=== PATIENT | male | born 1950 | race Caucasian/White ===

== ENCOUNTER 2023-10-30 11:34 | Emergency (ER) | payer MEDICARE, SELFPAY ==
[2023-10-30 11:50] VITALS: BP 166/81; PULSE 62; RESP 20; TEMP 36.9; O2SAT 97; BMI 31.2
--- NOTE | 2023-10-30 12:01 | CRLHL7_ITS ---
For Patients: As a result of the 21st Century Cures Act, medical imaging exams and procedure reports are released immediately into your electronic medical record. You may view this report before your referring provider. If you have questions, please contact your health care provider. INDICATION: Right-sided abdominal pain. Evaluate for kidney stone. TECHNIQUE: Multiplanar CT examination of the abdomen and pelvis was performed without the use of intravenous contrast. COMPARISON: None. FINDINGS: Lower chest: No focal consolidation. Normal heart size. No pleural effusions or pneumothorax. Dependent atelectasis. Linear band like opacification of the lungs bilaterally, likely subsegmental atelectasis and/or scarring. Liver: Unremarkable. Gallbladder: Unremarkable. Biliary: Unremarkable. Pancreas: Within normal limits. Spleen: Unremarkable. Adrenal glands: Unremarkable. Renal/ureters/bladder: The right kidney appears edematous with moderate hydroureteronephrosis the level of the proximal ureter where there is a 5 mm obstructing urinary calculus (2:90). There is mild associated right-sided perinephric fat stranding. The left kidney is normal in size without evidence of obstructive uropathy. Limited evaluation for renal masses without the use of intravenous contrast. Bladder appears diffusely thick walled, with several posterior projecting bladder diverticulum on the right, can be seen in the setting of chronic outlet obstruction. Pelvis: Enlarged prostate measuring 4.6 cm. Gastrointestinal: No bowel wall thickening or bowel obstruction. Nonvisualized appendix. No significant colonic diverticulosis. Moderate colonic stool burden. Vasculature: No aortic aneurysm. Moderate atherosclerotic calcifications. Lymph nodes: No pathologic lymphadenopathy by size criteria. Peritoneum: No free fluid or pneumoperitoneum. No drainable fluid collections. Abdominal wall/soft tissues: Unremarkable. Bones: No acute osseous abnormalities. Mild multilevel degenerative changes of the thoracolumbar spine. IMPRESSION: Moderate right-sided hydroureteronephrosis to the level of the proximal ureter where there is a 5 mm obstructing urinary calculus. Please note that all CT scans at this facility use dose modulation, iterative reconstruction, and/or weight-based dosing when appropriate to reduce radiation dose to as low as reasonably achievable. Dictated by Solo Arora MD @ 10/30/2023 1:13:05 PM (Electronically Signed)
--- NOTE | 2023-10-30 12:13 | ED.GENADULT ---
HPI - General Adult General Chief complaint: Back Injury/Pain Stated complaint: Lower R side back/abdominal pain Time Seen by Provider: 10/30/23 11:36 History of Present Illness HPI narrative: Patient is a 73 year white male advised to come to the ER by his clinic, he had abdominal pain. Reports that it started at 4 in the morning with some lobe right-sided back ache. He has had no urinary symptoms no hematuria no frequency, he does have prostatism and takes tamsulosin for this. He has no fevers chills or vomiting. He has noticed pain radiating through to his front side of his abdomen, is right lower quadrant, does not radiate to his groin or testicles. He has had no pain in his groin, no dysuria no hematuria as mention. He has had no history kidney stones. He has been generally quite healthy. Presents emergency department. He reports this time it is a ?ache?. Related Data Home Medications ?Medication ?Instructions ?Recorded ?Confirmed tamsulosin 0.4 mg capsule 0.4 mg PO DAILY 10/30/23 10/30/23 Previous Rx's ?Medication ?Instructions ?Recorded ketorolac 10 mg tablet 10 mg PO Q8H PRN pain 3 days #10 10/30/23 tabs Allergies Allergy/AdvReac Type Severity Reaction Status Date / Time No Known Drug Allergies Allergy Verified 10/30/23 11:17 Review of Systems Status of ROS: Reports: 6 or more systems reviewed and unremarkable except as noted in History and below Exam Narrative: Exam Narrative: Objective: In general patient is in no apparent distress alert orient x3 noncyanotic Vital signs show slightly elevated blood pressure, afebrile HEENT unremarkable pulse regular abdomen some very mild right lower abdominal tenderness lateral to the umbilicus, not really over his appendix. Denies groin pain Negative flank pain Extremities good perfusion Neurologic nonfocal Const: Vital Signs, click to edit/add: Vital Signs - 24 hr 10/30/23 11:50 Temperature 98.5 F Pulse Rate [Pulse Oximeter] 62 Respiratory Rate 20 Blood Pressure [Ri ght Upper Arm] 166/81 H Pulse Oximetry 97 Oxygen Delivery Me thod Room Air Course Vital Signs Vital signs: Initial Vital Signs Temperature 98.5 F 10/30/23 11:50 Temperature Source Temporal Artery Scan 10/30/23 11:50 Pulse Rate 62 10/30/23 11:50 Pulse Rhythm Regular 10/30/23 11:50 Respiratory Rate 20 10/30/23 11:50 Blood Pressure 166/81 H 10/30/23 11:50 Blood Pressure Mean 109 H 10/30/23 11:50 Blood Pressure Position Sitting 10/30/23 11:50 Pulse Oximetry 97 10/30/23 11:50 Oxygen Delivery Method Room Air 10/30/23 11:50 Vital Signs Temperature 98.5 F 10/30/23 11:50 Pulse Rate 62 10/30/23 11:50 Respiratory Rate 20 10/30/23 11:50 Blood Pressure 166/81 H 10/30/23 11:50 Pulse Oximetry 97 10/30/23 11:50 Oxygen Delivery Method Room Air 10/30/23 11:50 Temperature 98.5 F 10/30/23 11:50 Pulse Rate 62 10/30/23 11:50 Respiratory Rate 20 10/30/23 11:50 Blood Pressure 166/81 H 10/30/23 11:50 Pulse Oximetry 97 10/30/23 11:50 Oxygen Delivery Method Room Air 10/30/23 11:50 Medications Administered Medications: Discontinued Medications Generic Name Dose Route Start Last Admin Trade Name Freq PRN Reason Stop Dose Admin Sodium Chloride 1,000 mls @ 6,000 mls/hr 10/30/23 12:00 10/30/23 13:44 0.9 % Sodium Chloride 1000 Ml IV 10/30/23 12:09 Infused .Q10M SAADIA Infusion Ketorolac Tromethamine 15 mg 10/30/23 12:15 10/30/23 12:24 Ketorolac 15 Mg/Ml Inj IVP 10/30/23 12:16 15 mg ONCE ONE Administration Morphine Sulfate 4 mg 10/30/23 13:23 10/30/23 13:28 Morphine 4 Mg/Ml Inj IVP 10/30/23 13:24 4 mg ONCE ONE Administration Medical Decision Making MDM Narrative Medical decision making narrative: [age] white male with onset of right lower abdominal and back pain, rule out kidney stone rule out cholecystitis rule out diverticulitis, rule out appendicitis. Patient will get a CT scan without contrast, IV fluid, IV Toradol, urinalysis lab studies. Disposition pending findings above. Addendum 1:15 p.m. the patient has a 5 mm proximal ureteral calculus in the right ureter with hydronephrosis. His urinalysis does not look infected. His white count is normal. I think he can practice a urine strainer for 48 hours, he may not pass this stone may need urology follow-up but would have him see his regular doctor within the next 2-3 days. Will give some Toradol for home will send him home with a urine strainer. Return if increasing pain or problems or concerns. Patient given additional IV dose of morphine just to help him get home, and then he can use the Toradol again. His pain is resolved but just getting a little inkling of pain returning. Will help with the medication. He may need to see Urology at some point will have him see Primary Care within the next few days. He sees Dr. Ken Parks [facility]. Lab Data Labs: Lab Results 10/30/23 10/30/23 Range/Units 12:15 12:40 WBC 6.97 (4.50-11.00) K/uL RBC 4.73 (4.30-5.90) m/uL Hgb 14.3 (13.5-17.5) gm/dL Hct 42.4 (37.0-53.0) % MCV 90 (80-100) fL MCH 30 (26-34) pg MCHC 34 (32-36) gm/dL RDW Coeff of Elijah 13.6 (11.5-15.5) % Plt Count 189 (140-440) K/uL Neut % (Auto) 71.6 (42.0-72.0) % Lymph % (Auto) 19.4 L (20-44) % Mccormick % (Auto) 7.9 (0.0-11.0) % Eos % (Auto) 0.7 (0.0-7.0) % Baso % (Auto) 0.3 (0.0-3.0) % Neut # (Auto) 4.99 (1.7-7.0) K/uL Lymph # (Auto) 1.40 (0.90-2.90) K/uL Mccormick # (Auto) 0.60 (0.00-0.90) K/UL Eos # (Auto) 0.05 (0.00-0.50) K/uL Baso # (Auto) 0.02 (0.00-0.30) K/uL Abs Immat Gran (auto) 0.01 (0.00-0.30) K/uL Imm/Tot Granulo (auto) 0.1 % Sodium 141 (135-149) mmol/L Potassium 4.2 (3.6-5.1) mmol/L Chloride 107 (96-114) mmol/L Carbon Dioxide 25 (20-32) mmol/L Anion Gap 9 (7-15) mEq/L BUN 26 (7-30) mg/dL Creatinine 1.0 (0.5-1.5) mg/dL Estimated Creat Clear 72.16 Estimated GFR 80 ml/min Glucose 130 H (60-115) mg/dL Calcium 9.4 (8.4-10.6) mg/dL Total Bilirubin 0.9 (0.1-1.5) mg/dL Direct Bilirubin 0.4 (0.0-0.5) mg/dL AST 27 (12-35) U/L ALT 30 (4-50) U/L Alkaline Phosphatase 76 (40-150) U/L C-Reactive Protein < 0.5 L (0.5-1.0) mg/dL Total Protein 7.3 (6.0-8.3) g/dL Albumin 4.4 (3.3-5.0) g/dL Urine Color Yellow (Yellow) Urine Appearance Clear (Clear) Urine pH 6.0 (5.0-8.5) Ur Specific Gazelle >= 1.030 (1.000-1.030) Urine Protein Negative (Negative) Urine Glucose (UA) Negative (Negative) Urine Ketones Negative (Negative) Urine Blood Trace-intact A (Negative) Urine Nitrite Negative (Negative) Urine Bilirubin Negative (Negative) Urine Urobilinogen 0.2 (0.2-1.0) Ur Leukocyte Esterase Negative (Negative) Urine RBC 5-10 A (0-2) Urine WBC 2-5 (0-5) Ur Squamous Epith Cells Few (None-Few) Urine Bacteria Few A (None) Discharge Plan Discharge Clinical Impression: H/O right flank pain, Urolithiasis Patient Disposition: Home w/ Parent or Adult Condition: Improved Additional Instructions: Urine strainer for 48 hours, fluids, Toradol as needed, return if problems or concerns. Recommend follow up with regular doctor in 2-3 days to recheck urinalysis. May need to see a urologist. Return to ED if increasing pain or other problems. Activity Level: Light activity Discharge Diet: Regular Prescriptions: New ketorolac 10 mg tablet 10 mg PO Q8H PRN (Reason: pain) 3 Days Qty: 10 0RF No Action tamsulosin 0.4 mg capsule 0.4 mg PO DAILY Follow Up/Referrals: Provider,Not a Local [Referring] - Stand Alone Forms: [employer] Info Instructions
[2023-10-30] MEDS: 0.9 % SODIUM CHLORIDE 1000 ml 1,000 ML 6000 ML IV (12:20)
[2023-10-30 12:23] LABS: Basophils Absolute Auto 0.02 K/uL (0.00-0.30); Basophils Percent Auto 0.3 % (0.0-3.0); Eosinophils Absolute Auto 0.05 K/uL (0.00-0.50); Eosinophils Percent Auto 0.7 % (0.0-7.0); Hematocrit 42.4 % (37.0-53.0); Hemoglobin* 14.3 gm/dL (13.5-17.5); Immature Granulocytes Abs Auto 0.01 K/uL (0.00-0.30); Immature Granulocytes Pct Auto 0.1 %; Lymphocytes Percent Auto 19.4 % (20-44); Mean Corpuscular HGB Conc 34 gm/dL (32-36); Mean Corpuscular Hemoglobin 30 pg (26-34); Mean Corpuscular Volume 90 fL (80-100); Monocytes Percent Auto 7.9 % (0.0-11.0); Neutrophils Absolute Auto 4.99 K/uL (1.7-7.0); Neutrophils Percent Auto 71.6 % (42.0-72.0); Platelet Count* 189 K/uL (140-440); RDW Coefficient of Variation % 13.6 % (11.5-15.5); Red Blood Count 4.73 m/uL (4.30-5.90); White Blood Count* 6.97 K/uL (4.50-11.00)
[2023-10-30] MEDS: KETOROLAC 15 MG/ML inj IVP (12:24)
[2023-10-30 12:25] LABS: Slide Review Reflex No
[2023-10-30 12:46] LABS: C Reactive Protein* < 0.5 mg/dL (0.5-1.0)
[2023-10-30 12:50] LABS: Appearance Urine Clear (Clear); Bilirubin Urine Negative (Negative); Blood Urine Trace-intact (Negative); Color Urine Yellow (Yellow); Glucose Urine Negative (Negative); Ketones Urine Negative (Negative); Leukocyte Esterase Urine Negative (Negative); Nitrite Urine Negative (Negative); Protein Urine Negative (Negative); Specific Gravity Urine >= 1.030 (1.000-1.030); Urobilinogen Urine 0.2 (0.2-1.0)
[2023-10-30 13:01] LABS: Bacteria Urine Few; Squamous Epithelial Cell Urine Few (None-Few)
[2023-10-30 13:08] LABS: Albumin* 4.4 g/dL (3.3-5.0); Chloride* 107 mmol/L (96-114)
[2023-10-30 13:09] LABS: Potassium* 4.2 mmol/L (3.6-5.1); Sodium* 141 mmol/L (135-149)
[2023-10-30 13:11] LABS: Anion Gap 9 mEq/L (7-15); Aspartate Amino Transferase* 27 U/L (12-35); Bilirubin Direct* 0.4 mg/dL (0.0-0.5); Bilirubin Total* 0.9 mg/dL (0.1-1.5); Blood Urea Nitrogen* 26 mg/dL (7-30); Carbon Dioxide* 25 mmol/L (20-32); Est. Creatinine Clearance* 72.16; Estimated Glomerular Filt Rate 80 ml/min; Glucose* 130 mg/dL (60-115); Total Protein* 7.3 g/dL (6.0-8.3)
[2023-10-30 13:12] LABS: Alanine Aminotransferase* 30 U/L (4-50); Alkaline Phosphatase* 76 U/L (40-150); Calcium* 9.4 mg/dL (8.4-10.6)
[2023-10-30] MEDS: MORPHINE 4 MG/ML INJ IVP (13:28)
== END 2023-10-30 13:45 | disposition home or self-care (01) ==
PROVIDERS: Emergency Provider Family Medicine; PCP Family Medicine
DX: N20.1 Calculus of ureter (principal)
CPT/HCPCS: 36415; 74176; 80048; 80076; 81001; 85025; 86140; 87086; 96374; 96375; 99284; J1885; J2270; J7030